=== PATIENT | male | born 1970 | race Hispanic/Latino ===

== ENCOUNTER 2016-12-09 09:40 | Emergency (ER) | payer OTHER ==
[~2016-12-09] VITALS: Ht 172.7 cm; Wt 96.1 kg
[~2016-12-09 09:40] MED LIST: CHOLESTEROL MEDICATI PO; LORTAB 5-325 M1 EACH PO; MOTRIN600 MG PO
[2016-12-09] MEDS ORDERED: CIPRO500 MG PO (09:54)
[2016-12-09 11:19] LABS: ADD MIUA? NO; BILIRUBIN NEGATIVE; BLOOD NEGATIVE; COLOR YELLOW ((YELLOW)); GLUCOSE (STRIP) NEGATIVE; KETONES NEGATIVE; LEUKOCYTES NEGATIVE; NITRITE NEGATIVE; PROTEIN (STRIP) NEGATIVE; SPECIFIC GRAVITY 1.011 (1.000-1.030); UROBILINOGEN 0.2 MG/DL (0.2-1.0)
[2016-12-09 11:46] LABS: EOSINOPHIL (%) 4.6 % (0-5); EOSINOPHIL COUNT 0.3 K/uL (0-0.3); HEMATOCRIT 41.5 % (38.0-50.0); IMMATURE GRANULOCYTE (%) 0.3 % (0.0-0.7); INSTRUMENT ABS NEUTROPHIL CT 2.1 K/uL; MCH 30.5 PG (29.0-34.0); MCV 89.6 FL (86-99); MEAN PLAT.VOLUME 10.3 uM^3 (9.0-12.4); MONOCYTE (%) 6.2 % (3-12); MONOCYTE COUNT 0.4 K/uL (0-0.8); NEUTROPHIL (%) 36.4 % (45-76); NEUTROPHIL COUNT 2.1 K/uL (1.8-6.4); PLATELET COUNT 216 K/uL (156-360); RBC DIS.WIDTH-CV 11.6 % (11.8-14.6); RBC DIS.WIDTH-SD 37.8 % (39-53); RED BLOOD COUNT 4.63 M/uL (4.00-5.50); WHITE BLOOD COUNT 5.8 K/uL (4.1-10.2)
[2016-12-09 11:48] LABS: CHLORIDE 106 mEq/L (99-109); POTASSIUM 3.8 mEq/L (3.7-5.4); SODIUM 141 mEq/L (136-147)
[2016-12-09 11:51] LABS: GLUCOSE 108 mg/dL (70-99)
[2016-12-09 11:52] LABS: ANION GAP 9 MEQ/L (2-14)
[2016-12-09 11:53] LABS: TOTAL BILIRUBIN 0.6 mg/dL (0.0-1.0)
[2016-12-09 11:54] LABS: ALKALINE PHOSPHATASE 71 IU/L (3-129); GFR ESTIMATE (CALCULATED) > 59 mL/min/
[2016-12-09 11:55] LABS: UREA NITROGEN (BUN) 11 mg/dL (9-23)
[2016-12-09] MEDS ORDERED: ULTRAM50 MG PO (12:54)
[2016-12-09] MEDS ORDERED: BACLOFEN10 MG PO (12:54)
[2016-12-09 13:34] VITALS: BP 125/87
== END 2016-12-09 13:15 | disposition home or self-care (01) ==
LOC: EME → EDBD 09:40 → EME 09:40
PROVIDERS: Emergency Medicine
DX: M54.5 Low back pain (principal); R07.81 Pleurodynia; R10.9 Unspecified abdominal pain; E78.5 Hyperlipidemia, unspecified; I10 Essential (primary) hypertension; V49.40XA Driver injured in collision with unspecified motor vehicles in traffic accident, initial encounter
CPT/HCPCS: 70450; 71101; 74177; 80053; 81003; 85025; 99281; 99284; J1885; J2270; J2405